=== PATIENT | male | born 1965 | race Caucasian/White ===

== ENCOUNTER 2017-07-08 07:31 | Day surgery (SDC) | payer OTHER ==
[2017-07-08 08:02] VITALS: BMI 35.6
[2017-07-08] MEDS ORDERED: Propofol 10 mg/ml Inj (20 ML) ONE (10:39)
[2017-07-08] MEDS ORDERED: Midazolam 2 MG/2 ML VIAL ONE (10:39)
[2017-07-08] MEDS ORDERED: Lidocaine Hydrochloride 5 ML INJ ONE (10:40)
[2017-07-08 12:12] VITALS: TEMP 98
[2017-07-08 12:14] VITALS: BP 159/76; PULSE 78; RESP 20; O2SAT 97
== END 2017-07-08 15:00 | disposition home or self-care (01) ==
LOC: C.ENDO 07:31
PROVIDERS: ATTEND Internal Medicine
DX: Z12.11 Encounter for screening for malignant neoplasm of colon (principal); K64.8 Other hemorrhoids; E11.9 Type 2 diabetes mellitus without complications
CPT/HCPCS: 45378; 82948; J2250; J2704